=== PATIENT | male | born 1970 | race Caucasian/White ===

== ENCOUNTER 2024-02-03 16:06 | Emergency (ER) | payer OTHER, SELFPAY ==
[2024-02-03 16:07] VITALS: BP 127/85
[2024-02-03 17:42] VITALS: BMI 26.7
[2024-02-03] MEDS: ANCEF 10 IV (18:23)
[2024-02-03] MEDS: ADACEL 0.5 ML IM (18:24)
--- NOTE | 2024-02-03 18:31 | ED.GENMED ---
History of Present Illness
General
Chief Complaint: Skin Problem
Source: patient
Exam Limitations: none
Time Seen by Provider: 02/03/24 16:22
Nursing documentation reviewed up to this point in time: agreed with
Travel History
Have you had any contact with someone who has COVID-19?: No
Do you have any symptoms of coronavirus? Fever > 100 degrees, chills, cough, shortness of breath, sore throat, loss of taste or smell, muscle aches, or headache?: No
History of Present Illness
History of Present Illness:
53-year-old male presenting to the emergency department today with concerns of a crush injury to the left ring finger that occurred in a log splitter prior to arrival. He did bring in the very distal portion of his finger as well. Moderate pain to
the area claims he was wearing gloves and denies significant foreign bodies.
Review of Systems
Review of Systems
Allergies reviewed?: Yes
All Other Systems: ROS reviewed and negative except as documented in HPI and ROS
Phy Exam
Physical Exam
Physical Exam:
GENERAL: Alert , in no apparent distress
EYE: pupils equal and reactive
NECK: Supple, no significant adenopathy.
ENT: o/p clr, mmm.
CARDIAC: Regular rate and rhythm .
LUNGS: Clear breath sounds bilaterally, no acute respiratory distress, no wheezes/rales/rhonchi
ABDOMEN: Soft, without focal tenderness, no r/g, no cvat
NEUROLOGICAL: Alert and oriented, no focal neuro deficits
SKIN: Warm and dry, skin intact.
MUSCULOSKELETAL: Complete avulsion of the left distal ring finger roughly 1/5 of the distal portion after the DIP midway down the nailbed complete nail avulsion. No edema, well perfused.
PSYCH: Normal and appropriate interaction.
Course
Orders/Labs/Results
Orders:
Orders
02/03/24 16:20
Finger(s)/Thumb 2 View Lt [CR Finger(s)/thumb Min 2 Vw Lt] Urgent
Comment:
Reason For Exam: injury
Indicate Which Finger:: Ring Finger
02/03/24 16:22
Tetanus/Diphth/Acelpertussis [Adacel] 0.5 ml IM .ONCE ONE
02/03/24 18:00
Tetanus/Diphth/Acelpertussis [Adacel] 0.5 ml .ROUTE .STK-MED ONE
02/03/24 18:13
CeFAZolin 2 GRAM [Ancef] 2 grams in 10 ml IV NOW
Vital Signs
Initial and Last Documented VS:
Initial Vital Signs
Temp Pulse Resp BP Pulse Ox
98.9 F 98 20 127/85 100
02/03/24 16:07 02/03/24 16:07 02/03/24 16:07 02/03/24 16:07 02/03/24 16:07
Last Documented Vital Signs
Temp Pulse Resp BP Pulse Ox
98.9 F 98 20 127/85 100
02/03/24 16:07 02/03/24 16:07 02/03/24 16:07 02/03/24 16:07 02/03/24 16:07
Procedures
Laceration Closure
Left Distal Fourth Finger:
Status of Wound: clean
Size of Wound in cm: 1
Description of Wound Edges: other (Distal avulsion of the distal fifth of the distal portion of the left ring finger)
Preparation: cleaned with saline (Irrigated with at least 250 cc)
Anesthesia: 1% Lidocaine and Digital-Regional
Revision/Debridement: minor revision and irrigate-direct pressure
Wound exploration: explored to base- no FB and foreign body removed
Additional information:
No closure
MDM/Problems Addressed
MDM/Problems Addressed:
53-year-old male presenting after a distal finger tip injury complete avulsion of the distal fifth of the distal portion of the left ring finger midway down the nail bed. No significant foreign bodies cleaned thoroughly Case was discussed with
orthopedics recommending IV antibiotics thorough cleansing and close outpatient follow-up. Patient was also given a tetanus shot and will follow-up closely return precautions given.
*Critical Care Note
Total Time (30-74mins, 75-104mins- exclusive of procedures): Not Applicable
ED Attending Note
-
Portions of this chart may have been created with voice recognition software.� Occasional wrong word or��sound alike� substitutions may have occurred due to the inherent limitations of voice recognition software.
Discharge Plan
Departure
Patient Disposition: Home (Routine Discharge)
Date of Disposition: 02/03/24
Time of Disposition: 18:34
Patient with high blood pressure during this ER visit?: No
Condition: Good
Covid-19: Not Applicable
Discharge Problem:
Avulsion of fingertip
Instructions: Wound Care (DC)
Prescriptions:
New
cephalexin 500 mg capsule
500 mg PO QID 5 Days Qty: 20 0RF
Referrals:
Brendon Finley PA [Family Provider] -
Tono Villegas MD [Active] - Follow up in 2-3 days
Activity Restrictions/Additional Instructions:
You came to the emergency department today with concerns of a distal fingertip avulsion. Please keep the area clean covered and take Keflex 4 times daily over the next 5 days and follow-up closely with the hand surgeon over the next few days.
Return to the emergency department for any worsening, new or concerning symptoms.
Interventions
Interventions:
*Risk Screen - Suicide Last Done: 02/03/24 16:11
*General Assessment Last Done: 02/03/24 16:11
*Neglect/Abuse Screening Last Done: 02/03/24 16:11
ED- Fall Risk Assessment Last Done: 02/03/24 17:44
*ED COVID-19 Vaccine History Last Done: 02/03/24 17:42
Discharge Date and Time
Print Language: [id number]
[2024-02-03 19:10] VITALS: BP 129/88
== END 2024-02-03 19:11 | disposition home or self-care (01) ==
LOC: EMR 16:06
PROVIDERS: EMERGENCY PHYSICIAN Emergency Medicine; FAMILY PHYSICIAN Physician Assistant
DX: S61.305A Unspecified open wound of left ring finger with damage to nail, initial encounter (principal); W31.2XXA Contact with powered woodworking and forming machines, initial encounter; Z23 Encounter for immunization
CPT/HCPCS: 99284; 96374; 12001; 90471; 73140; 90715